=== PATIENT | female | born 1975 | race Caucasian/White ===

== ENCOUNTER 2021-10-06 15:03 | Emergency (ER) | payer MEDICARE ==
[2021-10-06 16:26] LABS: BLOOD UREA NITROGEN,BUN 8 mg/dL (7.0-18.0); CARBON DIOXIDE,CO2 28.2 mmol/L (21.0-32.0); CHLORIDE,CL 95 mmol/L (98-107); GLUCOSE RANDOM 356 mg/dL (74-106); POTASSIUM,K 3.4 mmol/L (3.5-5.1); SODIUM,NA 132 mmol/L (136-145)
[2021-10-06] MEDS ORDERED: Lidocaine 2% Viscous Solution 15 ML UD PO ONE (16:26)
[2021-10-06] MEDS ORDERED: metroNIDAZOLE 250 MG Tab PO ONE (17:34)
[2021-10-06] MEDS ORDERED: Nitrofurantoin Monohydrate/Macrocrystalline 100 MG Cap PO ONE (17:36)
[2021-10-06] MEDS ORDERED: Fluconazole 150 MG Tab PO ONE (17:36)
== END 2021-10-06 19:19 | disposition home or self-care (01) ==
LOC: MW.ED 15:03
DX: N76.0 Acute vaginitis (principal); B96.89 Other specified bacterial agents as the cause of diseases classified elsewhere; N39.0 Urinary tract infection, site not specified; B37.3 Candidiasis of vulva and vagina; E11.9 Type 2 diabetes mellitus without complications; Z91.14 Patient's other noncompliance with medication regimen; Z90.710 Acquired absence of both cervix and uterus; Z79.899 Other long term (current) drug therapy; Z88.6 Allergy status to analgesic agent; Z91.048 Other nonmedicinal substance allergy status; Z88.5 Allergy status to narcotic agent; Z91.011 Allergy to milk products; Z88.1 Allergy status to other antibiotic agents; Z88.0 Allergy status to penicillin; Z91.018 Allergy to other foods; Z88.8 Allergy status to other drugs, medicaments and biological substances
CPT/HCPCS: 36415; 80053; 81001; 81025; 85025; 87086; 87480; 87510; 87660; 99283; A9270